=== PATIENT | male | born 1970 | race Caucasian/White ===

== ENCOUNTER 2016-06-21 13:32 | Emergency (ER) | payer BC ==
[~2016-06-21] VITALS: Ht 175.3 cm; Wt 113.0 kg
[~2016-06-21 13:32] MED LIST: CHLO10 PO; CHLO5 PO
[2016-06-21 13:35] VITALS: BP 142/89; PULSE 134; RESP 28; TEMP 98; O2SAT 94
[2016-06-21] MEDS ORDERED: LEXA20TA PO (13:55)
[2016-06-21] MEDS ORDERED: PROP10TA6 PO (13:55)
[2016-06-21] MEDS ORDERED: PANT40TA3 PO (13:55)
[2016-06-21] MEDS ORDERED: SODIUM CHLOR 0.9% 1000 ML INJ 1,000 ML IV ONE (14:00)
[2016-06-21] MEDS ORDERED: LORazepam 2 MG/ML VIAL IV PUSH ONE (14:00)
[2016-06-21 14:10] VITALS: RESP 17; O2SAT 98
[2016-06-21 14:40] LABS: AUTOMATED NEUTROPHIL # 4.1 TH/MM3 (1.8-7.7); BASOPHIL % 0.2 % (0.0-2.0); EOSINOPHIL # 0.1 TH/MM3 (0-0.4); EOSINOPHIL % 1.1 % (0.0-4.0); HEMATOCRIT 46.9 % (39.0-51.0); HEMO FLAGS DIFF FINAL; LYMPH % 29.1 % (9.0-44.0); LYMPHOCYTE # 1.8 TH/MM3 (1.0-4.8); MEAN CELL VOLUME 85.1 FL (80.0-100.0); MEAN CORPUSCULAR HEMOGLOBIN 29.7 PG (27.0-34.0); MEAN CORPUSCULAR HGB CONC 34.9 % (32.0-36.0); MONO % 4.4 % (0.0-8.0); NEUT % 65.2 % (16.0-70.0); PLATELET COUNT 152 TH/MM3 (150-450); RED BLOOD COUNT 5.52 MIL/MM3 (4.50-5.90); RED CELL DISTRIBUTION WIDTH 14.4 % (11.6-17.2); WHITE BLOOD COUNT 6.3 TH/MM3 (4.0-11.0)
[2016-06-21 14:41] LABS: PROTHROMBIN TIME - PATIENT 10.7 SEC (9.8-11.6)
--- NOTE | 2016-06-21 14:54 | PD ---
HPI Chief Complaint: Anxiety Time Seen by Provider: 13:47 Travel History International Travel<30 days: No Contact w/Intl Traveler<30days: No History of Present Illness HPI Patient is a 46 year old male who comes in complaining of anxiety and feels like he is going through alcohol withdrawal. Patient has long standing history of alcoholism and has been trying to detox at home with his parents. He says that he was drinking a half handle of hard alcohol daily. Today his father reports that he drank 1/2 to 1 glass of vodka. Patient states he feels his heart racing and feels like bugs are crawling over his skin. He also complains of muscle cramps to his abdomen because he feels like he has been tightening his muscles due to anxiety. He says he takes Lexapro for anxiety, but does not take it when he drinks. He has been on propranolol in the past for rapid heart rate/anxiety. He denies chest pain or SOB. He has not had a seizure. PFSH Past Medical History Anxiety: Yes Cardiovascular Problems: Yes High Cholesterol: Yes Endocrine: No Gastrointestinal Disorders: Yes GERD: Yes Genitourinary: No Hypertension: Yes Immune Disorder: No Musculoskeletal: No Neurologic: No Psychiatric: Yes Respiratory: Yes Sleep Apnea: Yes Tetanus Vaccination: < 5 Years Past Surgical History Surgical History: No Previous Surgery Other Surgery: No Social History Alcohol Use: Yes (EVERY DAY) Tobacco Use: No Substance Use: No Allergies-Medications (Allergen,Severity, Reaction): Coded Allergies: No Known Allergies (Unverified , 06/21/16) Reported Meds & Prescriptions Reported Meds & Active Scripts Active Reported Propranolol (Propranolol HCl) 10 Mg Tab 10 Mg PO DAILY Pantoprazole (Pantoprazole Sodium) 40 Mg Tab 40 Mg PO DAILY Lexapro (Escitalopram Oxalate) 20 Mg Tab 10 Mg PO DAILY Review of Systems Except as stated in HPI: all other systems reviewed are Neg General / Constitutional: No: Fever, Chills HENT: No: Headaches, Lightheadedness Cardiovascular: Positive: Palpitations, No: Chest Pain or Discomfort Respiratory: No: Shortness of Breath Gastrointestinal: Positive: Nausea, Abdominal Pain Genitourinary: No: Dysuria Skin: Positive Itching, No Rash Psychiatric: Positive: Anxiety Physical Exam Narrative GENERAL: Awake and alert, in no acute distress. Mild tremors of the hands. SKIN: Focused skin assessment warm/dry. No rash or change in pigmentation. HEAD: Atraumatic. Normocephalic. EYES: Pupils equal and round. No scleral icterus. Extraocular movements intact. ENT: Mucous membranes pink and moist. No tongue fasciculations. NECK: Trachea midline. No JVD. CARDIOVASCULAR: Tachycardia. No murmur appreciated. RESPIRATORY: No accessory muscle use. Clear to auscultation. Breath sounds equal bilaterally. GASTROINTESTINAL: Abdomen soft, nondistended. Mild diffuse tenderness to palpation. No rebound or guarding. MUSCULOSKELETAL: No obvious deformities. No clubbing. No cyanosis. No edema. NEUROLOGICAL: Awake and alert. No obvious cranial nerve deficits. Motor grossly within normal limits. Normal speech. PSYCHIATRIC: Appropriate mood and affect; insight and judgment normal. Data Data Last Documented VS Vital Signs Date Time Temp Pulse Resp B/P Pulse Ox O2 Delivery O2 Flow Rate FiO2 06/21/16 15:37 98.0 86 16 126/81 99 06/21/16 15:23 Room Air Orders Complete Blood Count With Diff (06/21/16 13:55) Comprehensive Metabolic Panel (06/21/16 13:55) Act Partial Throm Time (Ptt) (06/21/16 13:55) Prothrombin Time / Inr (Pt) (06/21/16 13:55) Electrocardiogram (06/21/16 ) Iv Access Insert/Monitor (06/21/16 13:55) [employer] Pipe Supervisor / Telemetry [id number] (06/21/16 13:55) Oximetry (06/21/16 13:55) Sodium Chlor 0.9% 1000 Ml Inj (Ns 1000 M (06/21/16 14:00) Alcohol (Ethanol) (06/21/16 13:55) Lorazepam Inj (Ativan Inj) (06/21/16 14:00) Labs Laboratory Tests Test 06/21/16 14:10 White Blood Count 6.3 TH/MM3 Red Blood Count 5.52 MIL/MM3 Hemoglobin 16.4 GM/DL Hematocrit 46.9 % Mean Corpuscular Volume 85.1 FL Mean Corpuscular Hemoglobin 29.7 PG Mean Corpuscular Hemoglobin 34.9 % Concent Red Cell Distribution Width 14.4 % Platelet Count 152 TH/MM3 Mean Platelet Volume 6.9 FL Neutrophils (%) (Auto) 65.2 % Lymphocytes (%) (Auto) 29.1 % Monocytes (%) (Auto) 4.4 % Eosinophils (%) (Auto) 1.1 % Basophils (%) (Auto) 0.2 % Neutrophils # (Auto) 4.1 TH/MM3 Lymphocytes # (Auto) 1.8 TH/MM3 Monocytes # (Auto) 0.3 TH/MM3 Eosinophils # (Auto) 0.1 TH/MM3 Basophils # (Auto) 0.0 TH/MM3 CBC Comment DIFF FINAL Differential Comment Prothrombin Time 10.7 SEC Prothromb Time International 1.0 RATIO Ratio Activated Partial 32.0 SEC Thromboplast Time Sodium Level 143 MEQ/L Potassium Level 3.3 MEQ/L Chloride Level 104 MEQ/L Carbon Dioxide Level 27.3 MEQ/L Anion Gap 12 MEQ/L Blood Urea Nitrogen 11 MG/DL Creatinine 0.90 MG/DL Estimat Glomerular Filtration 90 ML/MIN Rate Random Glucose 115 MG/DL Calcium Level 8.3 MG/DL Total Bilirubin 1.3 MG/DL Aspartate Amino Transf 45 U/L (AST/SGOT) Alanine Aminotransferase 54 U/L (ALT/SGPT) Alkaline Phosphatase 51 U/L Total Protein 7.9 GM/DL Albumin 4.6 GM/DL Ethyl Alcohol Level 317 MG/DL [facility] Medical Decision Making Medical Screen Exam Complete: Yes Emergency Medical Condition: Yes Medical Record Reviewed: Yes Interpretation(s) ECG shows sinus rhythm at 99, no ST elevation or depression, normal intervals Differential Diagnosis Alcohol withdrawal versus anxiety versus electrolyte abnormality versus dehydration Narrative Course Patient is a 46-year-old male who comes in complaining of severe anxiety and he thinks he is going through withdrawal. He is trying to detox himself from alcohol use. Exam shows anxious man, tachycardic no tongue fasciculations. IV established, labs sent. Patient connected to the salesperson new cars. Given IV fluids as well as Ativan. Labs show an alcohol level of 317. I spoke with the patient and his family and advised she is not going through withdrawal at this time. Patient is feeling better after Ativan and fluids. Patient was given the name and phone number for several detox facilities and advised to call in order to detox safely. Patient and family are comfortable with discharge at this time. Patient advised to return at any time for any worsening symptoms. Diagnosis Primary Impression: Alcohol intoxication Qualified Code: F10.120 - Alcohol intoxication, uncomplicated Additional Impression: Anxiety Patient Instructions: Alcohol Intoxication (ED), Alcohol Withdrawal (ED), Anxiety (ED), General Instructions Additional Instructions: Follow up with your primary care doctor. Seek detox at one of the detox facilities provided. Return to the ED at any time for any worsening symptoms. Disposition: 01 DISCHARGE HOME Condition: Stable Michelle Stevenson MD Jun 21, 2016 14:54 Michelle Stevenson MD Jun 21, 2016 14:54
[2016-06-21 14:58] LABS: ALT (GPT) 54 U/L (12-78); ANION GAP 12 MEQ/L (5-15); AST (GOT) 45 U/L (15-37); BICARBONATE 27.3 MEQ/L (21.0-32.0); BLOOD UREA NITROGEN 11 MG/DL (7-18); CHLORIDE 104 MEQ/L (98-107); GLOMERULAR FILTRATION RATE 90 ML/MIN (>89); POTASSIUM 3.3 MEQ/L (3.5-5.1); SODIUM (NA) 143 MEQ/L (136-145)
[2016-06-21 15:03] LABS: ALKALINE PHOSPHATASE 51 U/L (45-117); TOTAL BILIRUBIN ADULT 1.3 MG/DL (0.2-1.0)
[2016-06-21 15:23] VITALS: BP 131/81; PULSE 86; RESP 17; TEMP 98; O2SAT 99
[2016-06-21 15:37] VITALS: BP 126/81; TEMP 98
--- NOTE | 2016-06-22 13:27 | EKG ---
Date Performed: 06/21/2016 Time Performed: 14:25:15 PTAGE: 46 years EKG: Sinus rhythm Compared to prior tracing no significant change NORMAL ECG PREVIOUS TRACING : 01/14/2015 15.28 DOCTOR: Eddy Jordan Interpretating Date/Time 06/22/2016 13:26:36
== END 2016-06-21 15:37 | disposition home or self-care (01) ==
LOC: NEPC 13:32
DX: F10.120 Alcohol abuse with intoxication, uncomplicated (principal); F41.9 Anxiety disorder, unspecified; E78.00 Pure hypercholesterolemia, unspecified; I10 Essential (primary) hypertension; Y90.8 Blood alcohol level of 240 mg/100 ml or more
CPT/HCPCS: 80053; 80307; 85025; 85610; 85730; 93005; 96361; 96374; 99283; J2060; J7030